=== PATIENT | male | born 1985 | race Caucasian/White ===

== ENCOUNTER 2022-06-05 13:39 | Emergency (ER) | payer OTHER ==
[2022-06-05 14:51] LABS: HEMOGLOBIN 18.3 gm/dl (14.0-17.5); RED BLOOD COUNT 5.67 M/UL (4.20-5.50)
[2022-06-05 15:33] LABS: BUN/CREATININE RATIO 7 (0-10)
[2022-06-05] MEDS ORDERED: CIPRO500 MG PO (17:12)
[2022-06-05] MEDS ORDERED: PYRIDIUM200 MG PO (17:12)
[2022-06-08 22:09] LABS: CHLAMYDIA BY NAA Negative (Negative); GONOCOCCUS BY NAA Negative (Negative); TRICH VAG BY NAA Negative (Negative)
== END 2022-06-05 17:37 | disposition home or self-care (01) ==
LOC: ER1 13:39
PROVIDERS: Physician Assistant
DX: N12 Tubulo-interstitial nephritis, not specified as acute or chronic (principal); F17.210 Nicotine dependence, cigarettes, uncomplicated; Z90.89 Acquired absence of other organs
CPT/HCPCS: 80053; 81001; 83605; 85025; 87040; 87077; 87086; 87186; 87661; 96374; 96375; 99284; J0696; J1885